=== PATIENT | male | born 1975 | race Two or more races ===

== ENCOUNTER 2021-04-06 08:21 | Day surgery (SDC) | payer OTHER ==
[~2021-04-06 08:21] MED LIST: MIRALAX17 GM PO; NEURONTIN300 MG PO; TYLENOL ARTHRI650 MG PO; ULTRAM50 MG PO
== END 2021-04-06 11:40 | disposition home or self-care (01) ==
LOC: CIR.AMB 08:21
PROVIDERS: ATTEND Surgery
DX: K42.0 Umbilical hernia with obstruction, without gangrene (principal); K43.6 Other and unspecified ventral hernia with obstruction, without gangrene